=== PATIENT | male | born 1965 | race Caucasian/White ===

== ENCOUNTER 2016-12-30 18:46 | Emergency (ER) | payer SELFPAY ==
[2016-12-30] MEDS ORDERED: Ciprofloxacin 500 MG TAB ONE (19:02)
[2016-12-30] MEDS ORDERED: Ketorolac Tromethamine 60 MG/2 ML VIAL ONE (19:02)
== END 2016-12-30 19:30 | disposition home or self-care (01) ==
LOC: NAV ERS 18:46
DX: K02.9 Dental caries, unspecified (principal); F17.210 Nicotine dependence, cigarettes, uncomplicated
CPT/HCPCS: 96372; J1885